=== PATIENT | male | born 2000 | race African-American/Black ===

== ENCOUNTER 2019-05-27 17:36 | Emergency (ER) | payer OTHER ==
[~2019-05-27] VITALS: Ht 175.3 cm; Wt 62.6 kg
[2019-05-27 18:38] VITALS: BP 135/81
[2019-05-27] MEDS ORDERED: LIDOCAINE 1%, 10ML INFIL ONE (19:30)
[2019-05-27] MEDS ORDERED: LIDOCAINE-MPF 1%, 5ML ONE (19:30)
[2019-05-27] MEDS ORDERED: NEOSPORIN OINT. PKT 1 PACKET ONE (20:02)
== END 2019-05-27 20:08 | disposition home or self-care (01) ==
LOC: ED 18:36
DX: S01.81XA Laceration without foreign body of other part of head, initial encounter (principal); F17.200 Nicotine dependence, unspecified, uncomplicated; X58.XXXA Exposure to other specified factors, initial encounter; Y93.89 Activity, other specified; Y92.009 Unspecified place in unspecified non-institutional (private) residence as the place of occurrence of the external cause; Y99.8 Other external cause status
CPT/HCPCS: 12051; 99284

== ENCOUNTER 2019-06-04 16:50 | Emergency (ER) | payer OTHER ==
[~2019-06-04] VITALS: Ht 175.3 cm; Wt 61.9 kg
[2019-06-04 16:53] VITALS: BP 128/77
[2019-06-04] MEDS ORDERED: HYDROcodone/APAP 5/325 TABLET PO STA (17:11)
== END 2019-06-04 17:17 | disposition home or self-care (01) ==
LOC: ED 17:10
DX: S01.81XD Laceration without foreign body of other part of head, subsequent encounter (principal); X58.XXXD Exposure to other specified factors, subsequent encounter
CPT/HCPCS: 99281